=== PATIENT | male | born 1965 | race American Indian/Alaskan Native ===

== ENCOUNTER 2020-01-12 10:10 | Emergency (ER) | payer OTHER ==
[2020-01-12 10:23] VITALS: TEMP 97.5; BMI 22.8
[2020-01-12] MEDS ORDERED: SODIUM CHLORIDE 1,000 ML IV STA (10:32)
[2020-01-12] MEDS ORDERED: MAG HYDROX/AL HYDROX/SIMETH 30 ML UNIT-DOSE CUP PO ONE (10:32)
[2020-01-12] MEDS ORDERED: FAMOTIDINE 20 MG/50 ML IVPB 20 MG/50 ML MG IVPB ONE ×3 (10:32→11:27)
[2020-01-12 11:07] LABS: EOS % 2.7 % (0-4.5); HEMATOCRIT 44.6 % (35.4-49); HEMOGLOBIN 15.1 GM/dL (11.7-16.9); LYMPH % 34.5 % (8-40); MCH 30.2 pg (25.7-33.7); MCHC 33.9 g/dl (32.0-35.9); MEAN CELL VOLUME 89.2 fl (80-96); MEAN PLT VOLUME 7.4 fl (7.5-11.1); MONO % 8.2 % (3.8-10.2); NEUT % 53.6 % (42.8-82.8); PLATELET COUNT 258 K/MM3 (134-434); RDW 13.5 % (11.9-15.9); WHITE BLOOD COUNT 6.9 K/mm3 (4.0-10.0)
[2020-01-12] MEDS ORDERED: MAG HYDROX/AL HYDROX/SIMETH 30 ML UNIT-DOSE CUP ONE (11:20)
[2020-01-12 11:40] LABS: CHLORIDE 103 mmol/L (98-107); POTASSIUM 3.7 mmol/L (3.5-5.1); SODIUM 139 mmol/L (136-145)
[2020-01-12 11:42] LABS: ALBUMIN 4.4 g/dl (3.4-5.0); ANION GAP 4 MMOL/L (8-16); CALCIUM 9.1 mg/dL (8.5-10.1); CO2 31 mmol/L (21-32)
[2020-01-12 11:43] LABS: GLUCOSE,RANDOM 99 mg/dL (74-106)
[2020-01-12 11:46] LABS: SGOT/AST 24 U/L (15-37); SGPT/ALT 25 U/L (13-61)
[2020-01-12 11:47] LABS: BILIRUBIN,TOTAL 1.4 mg/dL (0.2-1); TOT PROT 8.1 g/dl (6.4-8.2)
[2020-01-12 11:49] LABS: ALK PHOS 103 U/L (45-117)
[2020-01-12 11:51] LABS: N-TERMINAL BNP 53.4 pg/ml (5-125)
[2020-01-12 15:33] VITALS: BP 134/86; PULSE 89
== END 2020-01-12 15:33 | disposition home or self-care (01) ==
LOC: JER 10:10
PROC: 3E033GC Introduction of Other Therapeutic Substance into Peripheral Vein, Percutaneous Approach (ICD-10-PCS; principal; 2020-01-12)
PROC: 3E0337Z Introduction of Electrolytic and Water Balance Substance into Peripheral Vein, Percutaneous Approach (ICD-10-PCS; 2020-01-12)
DX: R07.9 Chest pain, unspecified (principal)
CPT/HCPCS: 36415; 71045-TC-FY; 71250-TC; 80053; 83880; 84484; 85025; 93005; 93010; 99285-25